=== PATIENT | male | born 1970 | race Two or more races ===

== ENCOUNTER 2022-11-30 09:07 | Emergency (ER) | payer OTHER ==
[~2022-11-30] VITALS: Ht 170.2 cm; Wt 63.5 kg
[~2022-11-30 09:07] MED LIST: CIPRO500 MG PO; URETRON DS1 TAB PO
== END 2022-11-30 13:18 | disposition home or self-care (01) ==
LOC: ER 09:07
DX: M25.562 Pain in left knee (principal)
CPT/HCPCS: 73700; 96372; 99283; J1100; J1885

== ENCOUNTER → 2025-04-07 | Emergency (ER) | payer OTHER ==
[~2025-04-07] VITALS: Ht 170.2 cm; Wt 65.8 kg
[~2025-04-07] MED LIST changes: +DICLOFENAC SODI50 MG PO; +KETOROLAC TROMETHAMINE 30 MG VIAL IM ONE; +KETOROLAC TROMETHAMINE 30 MG VIAL ONE; +NORFLEX100MG PO; +ORPHENADRINE CITRATE 30 MG/ML AMPUL IM ONE; +ORPHENADRINE CITRATE 30 MG/ML AMPUL ONE
== END ==
LOC: ER 13:21
DX: M54.16 Radiculopathy, lumbar region (principal); M54.59 Other low back pain
CPT/HCPCS: 72100; 73502; 96372; 99283; J1885; J2360